=== PATIENT | male | born 1955 | race Caucasian/White ===

== ENCOUNTER 2019-04-21 14:30 | Emergency (ER) | payer SELFPAY ==
[~2019-04-21] VITALS: Ht 172.7 cm; Wt 73.0 kg
[2019-04-21 14:39] VITALS: BP_SYST 184
[2019-04-21] MEDS ORDERED: LORazepam 1 MG TABLET PO ONE (15:00)
[2019-04-21] MEDS ORDERED: cloNIDine HCL 0.1 MG TABLET PO ONE (15:00)
[2019-04-21 16:00] VITALS: BP_SYST 174
== END 2019-04-21 16:00 | disposition home or self-care (01) ==
LOC: SED 14:30
DX: I16.0 Hypertensive urgency (principal); I11.0 Hypertensive heart disease with heart failure; E11.9 Type 2 diabetes mellitus without complications; I10 Essential (primary) hypertension; R42 Dizziness and giddiness; V49.9XXA Car occupant (driver) (passenger) injured in unspecified traffic accident, initial encounter; Y93.89 Activity, other specified; Y92.89 Other specified places as the place of occurrence of the external cause; Y99.8 Other external cause status
CPT/HCPCS: 99283